=== PATIENT | male | born 1940 | race Caucasian/White ===

== ENCOUNTER 2020-02-21 08:58 | Emergency (ER) | payer MEDICARE ==
[~2020-02-21] VITALS: Ht 175.3 cm; Wt 74.8 kg
[2020-02-21] MEDS ORDERED: BACTRIM DS TAB1 EACH PO (09:59)
--- NOTE | 2020-02-21 09:59 | Emergency Department Note ---
History of Present Illnes History of Present Illness Chief Complaint: Laceration to left index finger s/p cut with a knife while sharpening knife History of Present Illness This is a 79 year old male . Historian: Patient Arrival Mode: Car History limited by: condition of the patient (normal) Java [employer] Developer Required: No Onset (how long ago): day(s) (1) Location: substernal Radiation: Reports non-radiation Severity: moderate Duration (how long): day(s) (1) Timing of current episode: constant Progression: unchanged Chronicity: new Context: Reports trauma/injury; Denies recent illness, Denies recent surgery, Denies recent immobilization, Denies recent travel, Denies new medications, Denies hx of DVT/PE, Denies non- compliance w/ medications Relieving factors: none Exacerbating factors: none Associated symptoms: Reports denies other symptoms Treatments prior to arrival: none Past Medical/Family History Physician Review I have reviewed the patient's past medical and family history. Any updates have been documented here. Past Medical History Recent Fever: No Clinical Suspicion of Infectio: No New/Unexplained Change in Ment: No Past Medical History: Hypertension, CVA, Cancer, Hyperlipedemia Past Surgical History: Knee Replacement, Hernia Repair, Cataract Removal Other Surgery: prostate Social History Smoking Cessation: Never Smoker Counseling Performed: No Alcohol Use: None Any Illegal Drug Use: No TB Exposure/Symptoms: No Physically hurt or threatened: No Family History Family history of heart diseas: No Other Last Tetanus: unk Any Pre-Existing Lines (PICC,: No Is patient up to date on immun: Yes Last Flu: 2019 Last Pneumovax: [id number] Review of Systems Review of Systems Constitutional: Reports no symptoms EENTM: Reports no symptoms Cardiovascular: Reports no symptoms Respiratory: Reports no symptoms Gastrointestinal: Reports no symptoms Genitourinary: Reports no symptoms Musculoskeletal: Reports no symptoms Integumentary: Reports as per HPI Neurological: Reports no symptoms Psychological: Reports no symptoms Endocrine: Reports no symptoms Hematological/Lymphatic: Reports no symptoms Physical Exam Related Data Allergies: Coded Allergies: No Known Allergies (Unverified , 02/21/20) Triage Vital Signs Vital Signs Date Time Temp Pulse Resp B/P (MAP) Pulse Ox O2 Delivery O2 Flow Rate FiO2 02/21/20 09:00 99.2 86 18 185/87 100 Vital signs reviewed: Yes Physical Exam CONSTITUTIONAL Constitutional: Present well-developed, Present well-nourished HENT HENT: Present normocephalic, Present atraumatic, Present oropharynx clear/moist, Present nose normal HENT L/R: Present left ext ear normal, Present right ext ear normal EYES Eyes: Reports PERRL, Reports conjunctivae normal NECK Neck: Present ROM normal PULMONARY Pulmonary: Present effort normal, Present breath sounds normal CARDIOVASCULAR Cardiovascular: Present regular rhythm, Present heart sounds normal, Present capillary refill normal, Present normal rate GASTROINTESTINAL Abdominal: Present soft, Present nontender, Present bowel sounds normal GENITOURINARY Genitourinary: Present exam deferred SKIN Skin: Present warm, Present other (3.5 cm laceration tip of left ring finger. + bleeding/ +nvi/ farom) MUSCULOSKELETAL Musculoskeletal: Present ROM normal NEUROLOGICAL Neurological: Present alert, Present oriented x 3, Present no gross motor or sensory deficits PSYCHOLOGICAL Psychological: Present mood/affect normal, Present judgement normal Procedures Laceration Laceration: Laceration 1 Site: upper extremity (left ring finger) Side: left Size (cm): 3.5 Description: irregular, clean Depth: simple, single layer Local anesthesia: lidocaine 1% (finger block) Amount of anesthesia (mL): 6 Pre-repair: wound exposed, irrigated extensively, deep structures intact Skin layer closed with: nylon Size (cm): 5-0 Number of sutures: 3 Technique: simple, interrupted (bleeding is controlled s/p suture placement) Size (cm): other Assessment & Plan Medical Decision Making MDM return in 12 days for suture removal. Assessment & Plan Final Impression: (1) Finger laceration Depart Disposition: HOME, SELF-CARE Last Vital Signs Date Time Temp Pulse Resp B/P (MAP) Pulse Ox O2 Delivery O2 Flow Rate FiO2 02/21/20 09:00 99.2 86 18 185/87 100 Home Meds Active Scripts Sulfamethoxazole/Trimethoprim (BACTRIM DS TABLET) 1 Each Tablet, 1 TAB PO Q12H, #20 TAB Prov:ANJALI DICKERSON 02/21/20 Medications in the ED Trimethoprim/ Sulfamethoxazole 1 ea ONCE ONCE PO ; Start 02/21/20 at 10:00; Stop 02/21/20 at 10:01; Status UNV Tetanus/ Diphtheria Toxoids 0.5 ml ONCE ONCE IM ; Start 6/22/20 at 10:00; Stop 02/21/20 at 10:01 ANJALI DICKERSON Feb 21, 2020 09:59
[2020-02-21] MEDS ORDERED: TRIMETHOPRIM/SULFAMETHOXAZOLE 160-800 MG TAB PO ONE (10:00)
[2020-02-21] MEDS ORDERED: TETANUS/DIPHTHERIA TOX ADULT 0.5 ML SYR IM ONE (10:00)
[2020-02-21] MEDS ORDERED: BACITRACIN ZINC 0.9GM TP ONE (10:02)
[2020-02-21] MEDS ORDERED: TETANUS/DIPHTHERIA TOX ADULT 0.5 ML SYR ONE (10:02)
== END 2020-02-21 10:28 | disposition home or self-care (01) ==
LOC: FSED 08:58
DX: S61.211A Laceration without foreign body of left index finger without damage to nail, initial encounter (principal); W26.0XXA Contact with knife, initial encounter; Y92.008 Other place in unspecified non-institutional (private) residence as the place of occurrence of the external cause; I10 Essential (primary) hypertension; E78.5 Hyperlipidemia, unspecified; Z86.73 Personal history of transient ischemic attack (TIA), and cerebral infarction without residual deficits
CPT/HCPCS: 90471; 90714; 99283

== ENCOUNTER 2020-02-23 09:17 | Emergency (ER) | payer MEDICARE, OTHER ==
[~2020-02-23] VITALS: Ht 175.3 cm; Wt 74.8 kg
[~2020-02-23 09:17] MED LIST: BACTRIM DS TAB1 EACH PO
--- NOTE | 2020-02-23 09:55 | Emergency Department Note ---
History of Present Illnes History of Present Illness Chief Complaint: Suture Removal History of Present Illness This is a 79 year old male c cc left finger wound re check. He was here 3 days ago and wants it to be rechecked. . Historian: Patient Onset (how long ago): day(s) (3) Location: left index finger Quality: dull Radiation: Reports non-radiation Severity: mild Duration (how long): day(s) (3) Timing of current episode: constant Progression: improving Chronicity: new Context: Denies recent illness, Denies recent surgery, Denies recent immobilization, Denies recent travel, Denies trauma/injury, Denies new medications, Denies hx of DVT/PE, Denies non-compliance w/ medications, Denies other Relieving factors: none Exacerbating factors: none Associated symptoms: Reports denies other symptoms Past Medical/Family History Physician Review I have reviewed the patient's past medical and family history. Any updates have been documented here. Past Medical History Past Medical History: Hypertension, CVA, Cancer, Hyperlipedemia Past Surgical History: Knee Replacement, Hernia Repair, Cataract Removal Other Surgery: prostate Other Last Tetanus: unk Review of Systems Review of Systems Constitutional: Reports no symptoms EENTM: Reports no symptoms Cardiovascular: Reports no symptoms Respiratory: Reports no symptoms Gastrointestinal: Reports no symptoms Genitourinary: Reports no symptoms Musculoskeletal: Reports no symptoms Integumentary: Reports no symptoms Neurological: Reports no symptoms Psychological: Reports no symptoms Endocrine: Reports no symptoms Hematological/Lymphatic: Reports no symptoms Physical Exam Related Data Allergies: Coded Allergies: No Known Allergies (Unverified , 02/21/20) Vital signs reviewed: Yes Physical Exam CONSTITUTIONAL Constitutional: Present well-developed, Present well-nourished HENT HENT: Present normocephalic, Present atraumatic, Present oropharynx clear/moist, Present nose normal HENT L/R: Present left ext ear normal, Present right ext ear normal EYES Eyes: Reports PERRL, Reports conjunctivae normal NECK Neck: Present ROM normal PULMONARY Pulmonary: Present effort normal, Present breath sounds normal CARDIOVASCULAR Cardiovascular: Present regular rhythm, Present heart sounds normal, Present capillary refill normal, Present normal rate GASTROINTESTINAL Abdominal: Present soft, Present nontender, Present bowel sounds normal GENITOURINARY Genitourinary: Present exam deferred SKIN Skin: Present warm, Present dry, Present other (wund healing well); Absent erythema, Absent pale, Absent rash MUSCULOSKELETAL Musculoskeletal: Present ROM normal NEUROLOGICAL Neurological: Present alert, Present oriented x 3, Present no gross motor or sensory deficits PSYCHOLOGICAL Psychological: Present mood/affect normal, Present judgement normal Assessment & Plan Medical Decision Making MDM cellulitis Reassessment Reassessment better Assessment & Plan Final Impression: (1) Encounter for re-check of laceration wound Depart Disposition: HOME, SELF-nursing home Meds Active Scripts Sulfamethoxazole/Trimethoprim (BACTRIM DS TABLET) 1 Each Tablet, 1 TAB PO Q12H, #20 TAB Prov:ANJALI DICKERSON 02/21/20 MARCELINA CAMPBELL MD Feb 23, 2020 09:55
== END 2020-02-23 10:04 | disposition home or self-care (01) ==
LOC: FSED 09:17
DX: Z48.01 Encounter for change or removal of surgical wound dressing (principal)
CPT/HCPCS: 99282

== ENCOUNTER 2020-08-07 18:25 | Emergency (ER) | payer MEDICARE ==
[~2020-08-07] VITALS: Ht 175.3 cm; Wt 74.8 kg
== END 2020-08-07 19:14 | disposition home or self-care (01) ==
LOC: ER 19:07
DX: U07.1 COVID-19 (principal); R50.9 Fever, unspecified; I10 Essential (primary) hypertension; E78.5 Hyperlipidemia, unspecified; Z85.46 Personal history of malignant neoplasm of prostate; Z86.73 Personal history of transient ischemic attack (TIA), and cerebral infarction without residual deficits
CPT/HCPCS: 99282